=== PATIENT | female | born 1965 | race Hispanic/Latino ===

== ENCOUNTER → 2017-07-11 | Outpatient (CLI) | payer OTHER | END | disposition home or self-care (01) | LOC: OIH 13:24 | PROVIDERS: ATTEND Internal Medicine | DX: M23.8X2 Other internal derangements of left knee (principal) | CPT/HCPCS: 73560 ==

== ENCOUNTER → 2017-12-20 | Outpatient (CLI) | payer OTHER | END | disposition home or self-care (01) | LOC: OIH 11:21 | PROVIDERS: ATTEND Internal Medicine | DX: M54.2 Cervicalgia (principal) | CPT/HCPCS: 72040 ==

== ENCOUNTER → 2018-04-15 | Outpatient (CLI) | payer OTHER | END | disposition home or self-care (01) | LOC: OIH 13:48 | PROVIDERS: ATTEND Internal Medicine | DX: R06.00 Dyspnea, unspecified (principal); R05 Cough | CPT/HCPCS: 71046 ==

== ENCOUNTER → 2019-01-29 | Outpatient (CLI) | payer OTHER | END | disposition home or self-care (01) | LOC: OIH 13:43 | PROVIDERS: ATTEND Internal Medicine | DX: M13.862 Other specified arthritis, left knee (principal) | CPT/HCPCS: 73560 ==

== ENCOUNTER → 2019-09-08 | Outpatient (CLI) | payer OTHER | END | disposition home or self-care (01) | LOC: OIH 09:56 | PROVIDERS: ATTEND Family Medicine | DX: M17.12 Unilateral primary osteoarthritis, left knee (principal) | CPT/HCPCS: 73560 ==